=== PATIENT | female | born 1970 | race Caucasian/White ===

== ENCOUNTER 2018-07-30 09:21 | Emergency (ER) | payer OTHER ==
[~2018-07-30] VITALS: Ht 162.6 cm; Wt 63.5 kg
[2018-07-30] MEDS ORDERED: CIPRO500 MG (09:46)
== END 2018-07-30 13:28 | disposition home or self-care (01) ==
LOC: ER 09:21
DX: K29.70 Gastritis, unspecified, without bleeding (principal)